=== PATIENT | male | born 1970 | race Caucasian/White ===

== ENCOUNTER → 2017-08-31 | Outpatient (CLI) | payer MEDICAID ==
[~2017-08-31] MED LIST: AMLODIPINE10 MG PO; ASPIR-LOW81 MG PO; GABAPENTIN300 MG PO; HUMALOG MIX 75/10 ML SC; IBUPROFEN800 MG PO; LANTUS INS100 UNITS/ SC; LIPITOR40 MG PO; LISINOPRIL-HYDR1 TA1 PO; LOPRESSOR 25MG.25 M1 PO; METFORMIN HCL1000 MG PO; NORCO 325 MG-51 TAB PO; ROPINIROLE HYDRO1 MG PO; SPIRONOLACTONE25 MG NG; TIZANIDINE HCL 44 MG NG; TOPIRAMATE25 MG PO
[2017-08-31 15:36] LABS: HEMOGLOBIN 14.7 g/dL (14.1-18.0); LYMPH # 2.8 K/mm3 (0.7-4.5)
[2017-08-31 17:02] LABS: BUN 18 mg/dL (7-18)
[2017-08-31 17:06] LABS: GFR (ESTIMATED) 71 ML/MIN (>60)
[2017-09-03 04:39] LABS: Creatinine, Urine 160.1 mg/dL (Not Estab.); Microalbumin, Urine 5.7 ug/mL (Not Estab.)
== END ==
LOC: LAB 15:08
PROVIDERS: Nurse Practitioner Family
DX: E11.9 Type 2 diabetes mellitus without complications (principal)